=== PATIENT | female | born 1960 | race Caucasian/White ===

== ENCOUNTER 2022-06-11 07:22 | Emergency (ER) | payer OTHER, SELFPAY ==
[2022-06-11 07:26] VITALS: BP 168/86; PULSE 79; RESP 18; TEMP 35.9; O2SAT 95; BMI 46.3
[2022-06-11] MEDS: ONDANSETRON ODT 4 MG TAB PO (08:11)
[2022-06-11] MEDS: VENLAFAXINE ER 75 MG CAPSULE 150 MG PO (08:35)
--- NOTE | 2022-06-11 08:54 | ED.GENADULT ---
HPI - General Adult General Chief complaint: Nausea/Vomiting Stated complaint: withdrawal from Effexor Time Seen by Provider: 06/11/22 08:15 History of Present Illness HPI narrative: just got new insurance, ordered prescriptions. have not had bp meds or effexor. started nausea, vomitting, diarrhea, hot and cold, brain slams in head when moves eyes . pt took last effexor on sunday. she thinks she is going through withdrawal of her effexor. pt still waiting for her medications. each day symptoms worse or different ones. 61-year-old woman presenting to the emergency department feeling very uncomfortable presumably from withdrawal from Effexor. She stopped abruptly about 4 days ago having run out of her medication and has been awaiting for replacement prescription that seems to have been delayed. Nauseated with 1 small emesis. Feels very by the end brain slamming around in her head. No fever no rash. No shortness of breath. Related Data Home Medications Medication Instructions Recorded Confirmed cetirizine 10 mg tablet (24Hour 10 mg PO DAILY PRN 06/11/22 06/11/22 Allergy) losartan .ROUTE 06/11/22 metoprolol succinate 100 mg 100 mg PO DAILY 06/11/22 06/11/22 tablet,extended release 24 hr venlafaxine 150 mg 150 mg PO DAILY 06/11/22 06/11/22 capsule,extended release 24 hr Allergies Allergy/AdvReac Type Severity Reaction Status Date / Time Penicillins Allergy Intermediate Verified 06/11/22 07:35 Review of Systems Status of ROS: Reports: 6 or more systems reviewed and unremarkable except as noted in History and below [facility] Social History Smoking Status: Former smoker How often do you have a drink containing alcohol: 4 or more times a week How many standard drinks containing alcohol do you have on a typical day: 3 or 4 AUDIT-C Alcohol total score: 5 Non-prescribed substance use: denies use Exam Narrative: Exam Narrative: Pleasant. NAD. Carefully casually groomed. Breathing easily. Heart in regular rate and rhythm. Skin is warm and dry without rash. Abdomen is overweight soft nontender. Cranial nerves 2-12 intact. No nystagmus is evident. Moving extremities easily and fluidly. Speaking clearly. Has emesis bag nearby. Const: Vital Signs, click to edit/add: Vital Signs - 24 hr 06/11/22 07:26 Temperature 96.7 F L Pulse Rate [Pulse Oximeter] 79 Respiratory Rate 18 Blood Pressure [Ri ght Upper Arm] 168/86 H Pulse Oximetry 95 Oxygen Delivery Me thod Room Air Documenting provider has reviewed patient's vital signs: yes Course Vital Signs Vital signs: Initial Vital Signs Temperature 96.7 F L 06/11/22 07:26 Temperature Source Temporal Artery Scan 06/11/22 07:26 Pulse Rate 79 06/11/22 07:26 Respiratory Rate 18 06/11/22 07:26 Blood Pressure 168/86 H 06/11/22 07:26 Blood Pressure Mean 113 H 06/11/22 07:26 Blood Pressure Position Supine 06/11/22 07:26 Pulse Oximetry 95 06/11/22 07:26 Oxygen Delivery Method Room Air 06/11/22 07:26 Vital Signs Temperature 96.7 F L 06/11/22 07:26 Pulse Rate 79 06/11/22 07:26 Respiratory Rate 18 06/11/22 07:26 Blood Pressure 168/86 H 06/11/22 07:26 Pulse Oximetry 95 06/11/22 07:26 Oxygen Delivery Method Room Air 06/11/22 07:26 Temperature 96.7 F L 06/11/22 07:26 Pulse Rate 79 06/11/22 07:26 Respiratory Rate 18 06/11/22 07:26 Blood Pressure 168/86 H 06/11/22 07:26 Pulse Oximetry 95 06/11/22 07:26 Oxygen Delivery Method Room Air 06/11/22 07:26 Medical Decision Making MDM Narrative Medical decision making narrative: This certainly sounds to be Effexor withdrawal. Will be giving Zofran and dose of usual Effexor. On reassessment does seem more relaxed and notes that Zofran has markedly help her nausea. Does feel that if she maintains on Zyprexa will not need any more Zofran. I anticipate sending her with 2-3 tabs of Effexor from our pharmacy as already apparently has filled a prescription of Effexor that just has not yet arrived. See patient discharge plan Discharge Plan Discharge Clinical Impression: Drug withdrawal Patient Disposition: Home, Self-Care Condition: Stable Additional Instructions: Continue to focus on hydration. Hopefully symptoms continue to settle with this Effexor and you receive your replacement prescription very soon. Prescriptions: No Action metoprolol succinate 100 mg tablet extended release 24 hr 100 mg PO DAILY venlafaxine 150 mg capsule,extended release 24hr 150 mg PO DAILY cetirizine [24Hour Allergy] 10 mg tablet 10 mg PO DAILY PRN losartan .ROUTE Follow Up/Referrals: Analilia Hwang MD [Primary Care Provider] - Stand Alone Forms: [employer] Info Instructions
--- NOTE | 2022-06-11 09:18 | ED.NURSE ---
pt sent home with supply of 3 doses effexor
== END 2022-06-11 09:18 | disposition home or self-care (01) ==
PROVIDERS: Emergency Provider Family Medicine; PCP Family Medicine
DX: F19.939 Other psychoactive substance use, unspecified with withdrawal, unspecified (principal)
CPT/HCPCS: 99283; 99284; A9270